=== PATIENT | male | born 1995 | race Caucasian/White ===

== ENCOUNTER 2019-04-16 17:33 | Emergency (ER) | payer MEDICAID, OTHER ==
[~2019-04-16] VITALS: Ht 165.1 cm; Wt 91.3 kg
[2019-04-16 18:01] VITALS: BP 124/69; PULSE 71; RESP 16; Ht 165.1 cm; Wt 91.3 kg
[2019-04-16] MEDS ORDERED: CYCL10TA7 PO (20:12)
[2019-04-16] MEDS ORDERED: NAPR-985 PO (20:12)
--- NOTE | 2019-04-16 21:10 | ERD ---
ER Documentation Chief Complaint Chief Complaint BACK PAIN X 1 MONTH HPI 23-year-old male presenting to the emergency department complaining of midline low back pain intermittently for the past 1 month. Pain is intermittent and currently rated 8/10 in severity. He denies radiation of the pain. 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 He took Advil at home with some relief. He denies any fevers, chills, abdominal pain, loss of bowel or bladder function, weakness in the lower extremities, saddle anesthesia, or other symptoms. ROS All systems reviewed and are negative except as per history of present illness. Medications Home Meds Active Scripts Naproxen* (Naprosyn*) 500 Mg Tablet, 500 MG PO BID PRN for PAIN AND/OR INFLAMMATION, #30 TAB Prov:BIENVENIDO NAGY PA-C 04/16/19 Cyclobenzaprine Hcl* (Cyclobenzaprine Hcl*) 10 Mg Tablet, 10 MG PO TID, #15 TAB Prov:BIENVENIDO NAGY PA-C 04/16/19 Allergies Allergies: Coded Allergies: No Known Allergy (Unverified , 09/16/14) PMhx/Soc Hx Respiratory Disorders: Yes (ASTHMA) Hx Alcohol Use: No Hx Substance Use: No Hx Tobacco Use: No Smoking Status: Never smoker FmHx Family History: No diabetes Physical Exam Vitals Vital Signs Date Temp Pulse Resp B/P (MAP) Pulse Ox O2 O2 Flow FiO2 Time Delivery Rate 04/16/19 98.3 71 16 124/69 97 18:01 (87) Physical Exam Const: No acute distress Head: Atraumatic Eyes: Normal Conjunctiva ENT: Normal External Ears, Nose and Mouth. Neck: Full range of motion. No meningismus. Resp: No respiratory distress. Skin: No petechiae or rashes Back: No midline or flank tenderness. Mild subjective tenderness to the paraspinal muscles of the lumbar spine bilaterally. No step-offs. Ext: No cyanosis, or edema Neur: Awake and alert Psych: Normal Mood and Affect Procedures/MDM 23-year-old male presents emergency department with signs and symptoms most consistent with muscular skeletal low back pain. Patient's musculoskeletal symptoms have stabilized while they have been evaluated in the department and are appropriate for outpatient work up. No evidence of cauda equina, cord compression, infiltrative, or infectious etiology. No evidence of life-threatening pathology at time of discharge. Pt/family in agreement with discharge plan/diagnosis. Pt/family advised to return immediately with any new or worsening symptoms. Follow-up with primary care physician within the next 1-2 days. Departure Diagnosis: Primary Impression: Back pain Condition: Fair Patient Instructions: Back Pain (Acute Or Chronic) Referrals: [facility] YOU HAVE RECEIVED A MEDICAL SCREENING EXAM AND THE RESULTS INDICATE THAT YOU DO NOT HAVE A CONDITION THAT REQUIRES URGENT TREATMENT IN THE EMERGENCY DEPARTMENT. FURTHER EVALUATION AND TREATMENT OF YOUR CONDITION CAN WAIT UNTIL YOU ARE SEEN IN YOUR DOCTORS OFFICE WITHIN THE NEXT 1-2 DAYS. IT IS YOUR RESPONSIBILITY TO MAKE AN APPOINTMENT FOR [facility]. IF YOU HAVE A PRIMARY DOCTOR --you should call your primary doctor and schedule an appointment IF YOU DO NOT HAVE A PRIMARY DOCTOR YOU CAN CALL OUR PHYSICIAN REFERRAL HOTLINE AT IF YOU CAN NOT AFFORD TO SEE A PHYSICIAN YOU CAN CHOSE FROM THE FOLLOWING [facility] [address] [facility]. [facility] [address] [facility] [address] [facility] [facility] [address] [facility]. [facility] [address] [facility]. [facility]. [address] Additional Instructions: Call your primary care doctor TOMORROW for an appointment during the next 1-2 days.See the doctor sooner or return here if your condition worsens before your appointment time. BIENVENIDO NAGY PA-C Apr 16, 2019 21:10
== END 2019-04-16 20:30 | disposition home or self-care (01) ==
LOC: FTE 17:33
DX: M54.5 Low back pain (principal); J45.909 Unspecified asthma, uncomplicated
CPT/HCPCS: 99283